=== PATIENT | female | born 1990 | race Two or more races ===

== ENCOUNTER 2017-02-15 08:25 | Emergency (ER) | payer MEDICAID ==
[~2017-02-15] VITALS: Ht 152.4 cm; Wt 60.0 kg
[2017-02-15] MEDS ORDERED: ONDANSETRON 2MG/ML, 2ML ONE (08:55)
[2017-02-15] MEDS ORDERED: FAMOTIDINE 20 MG/2 ML ONE (08:55)
[2017-02-15] MEDS ORDERED: SODIUM CHLORIDE 0.9% 1,000ML IVBOLUS ONE (09:00)
[2017-02-15] MEDS ORDERED: ONDANSETRON 2MG/ML, 2ML IVPush ONE (09:00)
[2017-02-15] MEDS ORDERED: FAMOTIDINE 20 MG/2 ML IVP ONE (09:00)
[2017-02-15 09:43] LABS: BLOOD UREA NITROGEN 11 mg/dL (7-18)
[2017-02-15 09:49] LABS: ASPARTATE AMINO TRANSFERASE 18 U/L (15-37)
[2017-02-15 10:24] VITALS: BP 117/68
== END 2017-02-15 10:27 | disposition home or self-care (01) ==
LOC: ED 08:47
DX: K52.9 Noninfective gastroenteritis and colitis, unspecified (principal); F17.210 Nicotine dependence, cigarettes, uncomplicated
CPT/HCPCS: 36415; 80053; 84703; 85025; 96361; 96374; 96375; 99284; J2405; J7030; S0028

== ENCOUNTER 2017-10-28 04:44 | Emergency (ER) | payer MEDICAID, OTHER ==
[~2017-10-28] VITALS: Ht 149.9 cm; Wt 65.0 kg
[2017-10-28] MEDS ORDERED: SODIUM CHLORIDE 0.9% 1,000 ML IV ONE (05:17)
[2017-10-28] MEDS ORDERED: ONDANSETRON 2MG/ML, 2ML ONE (05:20)
[2017-10-28] MEDS ORDERED: ONDANSETRON 2MG/ML, 2ML IVPush ONE (05:30)
[2017-10-28] MEDS ORDERED: SODIUM CHLORIDE FLUSH 10ML SYR IVF ONE (05:30)
[2017-10-28 06:08] LABS: BASOPHILS # (AUTO) 0.07 x10^3/uL (0-0.1); BASOPHILS % (AUTO) 1 % (0-1); EOSINOPHILS # (AUTO) 0.07 x10^3/uL (0-0.4); EOSINOPHILS % (AUTO) 1 % (1-7); LYMPHOCYTES # (AUTO) 2.61 x10^3/uL (1-3.4); LYMPHOCYTES % (AUTO) 23 % (22-44); MD NO; MEAN CORPUSCULAR HEMOGLOBIN 30.6 pg (27.0-34.8); MEAN CORPUSCULAR HGB CONC 33.9 g/dL (32.4-35.8); MEAN CORPUSCULAR VOLUME 90.1 fL (80-100); MEAN PLATELET VOLUME 7.4 fL (7.4-10.4); MONOCYTES # (AUTO) 0.57 x10^3/uL (0.2-0.8); MONOCYTES % (AUTO) 5 % (2-9); NEUTROPHILS # (AUTO) 8.04 x10^3/uL (1.8-6.8); NEUTROPHILS % (AUTO) 71 % (42-75); PLATELET COUNT 352 x10^3/uL (130-400); RED BLOOD COUNT 3.86 x10^6/uL (3.82-5.3); RED CELL DISTRIBUTION WIDTH 13.1 % (9.6-15.2)
[2017-10-28] MEDS ORDERED: ONDANSETRON ODT 4 MG ONE (06:12)
[2017-10-28 06:14] LABS: ALBUMIN 3.5 g/dL (3.4-5.0); ANION GAP 8 mmol/L (5-15); CHLORIDE 112 mmol/L (98-107)
[2017-10-28 06:20] VITALS: BP 114/66
[2017-10-28] MEDS ORDERED: ONDANSETRON ODT 4 MG PO ONE (06:30)
== END 2017-10-28 07:11 | disposition home or self-care (01) ==
LOC: ED 07:05
DX: R55 Syncope and collapse (principal); S06.9X1A Unspecified intracranial injury with loss of consciousness of 30 minutes or less, initial encounter; W22.03XA Walked into furniture, initial encounter; Y93.89 Activity, other specified; Y92.89 Other specified places as the place of occurrence of the external cause; Y99.8 Other external cause status; F10.121 Alcohol abuse with intoxication delirium
CPT/HCPCS: 36415; 70450; 80048; 80307; 82040; 84703; 85025; 93005; 99285; Q0162